=== PATIENT | male | born 1980 | race Caucasian/White ===

== ENCOUNTER 2025-07-09 17:09 | Emergency (ER) | payer BC, SELFPAY ==
[2025-07-09 17:10] VITALS: BP 178/90
[2025-07-09 17:18] LABS: Glucose - Point of Care 100 mg/dl (70-99)
[2025-07-09 18:00] VITALS: BP 132/74
[2025-07-09 18:21] VITALS: BMI 29.4
[2025-07-09] MEDS: NSS 1000 IV (18:41)
[2025-07-09 18:44] LABS: Hematocrit 38.3 % (39.0-52.0); Hemoglobin 13.3 g/dL (13.0-18.0); Mean Corp Hgb Conc. 34.7 g/dL (33.0-37.0); Mean Corpuscular Volume 88.5 fL (80.0-94.0); Nucleated Red Blood Cells % 0 % (-); Platelet Count 213 10^3/uL (130-400); Red Cell Dist. Width 11.9 % (11.5-14.5)
[2025-07-09 18:58] LABS: D-Dimer < 0.27 ug/mlFEU (0.00-0.50)
[2025-07-09 19:03] LABS: ALT (SGPT) 20 U/L (0-50); AST (SGOT) 23 U/L (17-59); Albumin 4.7 g/dl (3.5-5.0); Alkaline Phosphatase 50 U/L (38-126); Blood Urea Nitrogen 21 mg/dl (9-20); Calcium 9.8 mg/dl (8.4-10.2); Carbon Dioxide 25 mmol/L (22-30); Chloride 101 mmol/L (98-107); Estimated Creatinine Clearance > 125 ml/min; Glucose 80 mg/dl (70-99); Potassium 4.2 mmol/L (3.5-5.1); Sodium 135 mmol/L (135-145); Total Protein 7.7 g/dl (6.3-8.2); eGFR > 60.00
--- NOTE | 2025-07-09 19:19 | ED.GENMED ---
History of Present Illness
General
Chief Complaint: Fainting/Passed Out
Source: patient
Exam Limitations: none
Time Seen by Provider: 07/09/25 18:02
Nursing documentation reviewed up to this point in time: agreed with
History of Present Illness
History of Present Illness:
44-year-old male presenting to the emergency department today with concerns of a syncopal episode while drinking 1 beer at a bar prior to arrival. He claims that he did have a marijuana gummy a few hours prior as well. Also had been doing a lot
more exercise than usual. Did recently start Zepbound and lost a large amount of weight over the past few years. Denies any current chest pain shortness of breath palpitations. No symptoms preceding the syncopal episode other than lightheadedness.
Past History
Past History
ED Past Medical History: None
ED Past Surgical History: None
Social History
Tobacco: Non-smoker
Alcohol: None
Drug: None
Personal: Single
Living: with family
Employment: Employed
Family History
Family History: Other
Review of Systems
Review of Systems
Allergies reviewed?: Yes
All Other Systems: ROS reviewed and negative except as documented in HPI and ROS
Phy Exam
Physical Exam
Physical Exam:
GENERAL: Alert , in no apparent distress
EYE: pupils equal and reactive
NECK: Supple, no significant adenopathy.
ENT: o/p clr, mmm.
CARDIAC: Regular rate and rhythm .
LUNGS: Clear breath sounds bilaterally, no acute respiratory distress, no wheezes/rales/rhonchi
ABDOMEN: Soft, without focal tenderness, no r/g, no cvat
NEUROLOGICAL: Alert and oriented, no focal neuro deficits
SKIN: Warm and dry, skin intact.
MUSCULOSKELETAL: No edema, well perfused.
PSYCH: Normal and appropriate interaction.
Course
Orders/Labs/Results
Orders:
Orders
07/09/25 17:13
ECG [Electrocardiogram (*1)] Urgent
Reason for Study: Syncope
EKG- Treatment ONCE
07/09/25 18:17
CT Head W/o Iv Contrast Urgent
Comment:
Reason For Exam: fall hit head
0.9% Sodium Chloride 1000 ml [Nss] 1,000 ml IV BOLUS
07/09/25 18:32
CBC/With Diff [Complete Blood Count/With Diff] Urgent
CMP [Comprehensive Metabolic Panel] Urgent
D-Dimer Urgent
Abnormal Lab Results
07/09/25 07/09/25
17:16 18:32
RBC 4.33 L 10^6/uL
(4.70-6.10)
Hct 38.3 L %
(39.0-52.0)
Lymphocytes % 17.3 L %
(20.5-51.1)
BUN 21 H mg/dl
(9-20)
POC Glucose 100 H mg/dl
(70-99)
07/09/25 18:32
07/09/25 18:32
Vital Signs
Initial and Last Documented VS:
Initial Vital Signs
Temp Pulse Resp BP Pulse Ox
97.5 F 88 16 178/90 100
07/09/25 17:10 07/09/25 17:10 07/09/25 17:10 07/09/25 17:10 07/09/25 17:10
Last Documented Vital Signs
Temp Pulse Resp BP Pulse Ox
97.5 F 88 16 178/90 100
07/09/25 17:10 07/09/25 17:10 07/09/25 17:10 07/09/25 17:10 07/09/25 19:20
MDM/Problems Addressed
MDM/Problems Addressed:
44-year-old male presenting to the emergency department today with concerns of syncopal episode. Patient claims that he has recently been traveling and doing a large amount of exercise. Did lose a large amount of weight over the past year.
Additionally did use a weed gummy a few hours prior to the episode of lightheadedness and passing out and also did drink a beer at that time. On arrival patient's hypertensive otherwise vital signs are normal. Labs were obtained that did not show
any acute abnormalities other than slightly elevated BUN to creatinine ratio. Otherwise EKG without emergent findings and D-dimer negative. PE very unlikely head CT negative no evidence of any emergent injury from the fall. Patient reassessed
feeling well at this point stable for discharge. Return precautions given.
*Pulse Oximetry
SaO2: 100
Oxygen Mode of Delivery: Room air
Patient hypoxic: no (100)
*Critical Care Note
Total Time (30-74mins, 75-104mins- exclusive of procedures): Not Applicable
ED Attending Note
-
Portions of this chart may have been created with voice recognition software.� Occasional wrong word or��sound alike� substitutions may have occurred due to the inherent limitations of voice recognition software.
Discharge Plan
Departure
Patient Disposition: Home (Routine Discharge)
Date of Disposition: 07/09/25
Time of Disposition: 19:51
Patient with high blood pressure during this ER visit?: No
Condition: Good
Covid-19: Not Applicable
Discharge Problem:
Syncope
Instructions: Syncope (Fainting) (DC)
Prescriptions:
No Action
ibuprofen [Advil Liqui-Gel] 200 MG capsule
2 cap PO BID
omeprazole magnesium [Prilosec OTC] 20 MG tablet,delayed release (DR/EC)
20 mg PO DAILY
ibuprofen 600 MG tablet
600 mg PO TIDPRN PRN (Reason: pain) Qty: 30 0RF
hydrocodone-acetaminophen 1 TABLET tablet
1 tab PO Q4HPRN PRN (Reason: pain) Qty: 10 0RF
Referrals:
Everett Dalal DO [Family Provider, Family Practice]
Activity Restrictions/Additional Instructions:
You came to the emergency department today with concerns after a syncopal episode. Here you have a reassuring assessment. Please feel close with your primary care doctor this week. Return for any worsening, new or concerning symptoms.
Interventions
Interventions:
*Risk Screen - Suicide Last Done: 07/09/25 18:22
*General Assessment Last Done: 07/09/25 18:22
*Neglect/Abuse Screening Last Done: 07/09/25 18:22
*ED COVID-19 Vaccine History Last Done: 07/09/25 18:22
ED- Cardiac Assessment Last Done: 07/09/25 19:25
ED- Neurological Assessment Last Done: 07/09/25 19:25
Discharge Date and Time
Print Language: [id number]
== END 2025-07-09 20:00 | disposition home or self-care (01) ==
LOC: EMR 17:09
PROVIDERS: Physician Assistant; EMERGENCY PHYSICIAN Emergency Medicine; FAMILY PHYSICIAN Family Medicine
DX: R55 Syncope and collapse (principal); F12.90 Cannabis use, unspecified, uncomplicated
CPT/HCPCS: 96360; 99284; 70450; 80053; 82962; 85025; 85379; 93005